=== PATIENT | male | born 1975 | race Two or more races ===

== ENCOUNTER 2017-01-15 02:43 | Emergency (ER) | payer OTHER ==
[~2017-01-15] VITALS: Ht 185.4 cm; Wt 104.3 kg
[2017-01-15] MEDS ORDERED: SODIUM CHLORIDE 0.9% 1,000 ML IV ONE (03:15)
[2017-01-15 03:42] LABS: Basophils # (auto) 0 uL; Basophils % (auto) 0.3 % (0.0-2.0); CONDITION Y; Eosinophils # (auto) 0.1 uL; Eosinophils % (auto) 0.9 % (0.0-7.0); Hematocrit 47.8 % (41.0-53.0); Hemoglobin 15.8 g/dL (13.5-17.5); Lymphocytes # (auto) 1.9 uL; Lymphocytes % (auto) 16.7 % (10.0-50.0); Mean Corpuscular Hemoglobin 28.9 pg (28.0-32.0); Mean Corpuscular Hgb Conc. 33.1 g/dL (32.0-36.0); Mean Corpuscular Volume 87.5 fL (80.0-100.0); Mean Platelet Volume 11.3 fL (7.4-10.4); Monocytes # (auto) 0.5 uL; Monocytes % (auto) 4.8 % (0.0-12.0); Neutrophils # (auto) 8.7 uL; Neutrophils % (auto) 77.3 % (37.0-80.0); Platelet Count (auto) 254 10^3/uL (140-450); Red Cell Distribution Width 12.7 % (11.6-16.0); SUSPECT SEE PRINTOUT; White Blood Cell 11.3 10^3/uL (4.4-10.8)
[2017-01-15 03:45] LABS: INR 0.96 (0.9-1.15); Partial Thromboplastin Time 28.9 sec (22.64-33.71); Prothrombin Time 10.5 sec (9.37-12.3)
[2017-01-15 03:54] LABS: Urine Bilirubin Negative (Negative); Urine Blood Negative /uL (Negative); Urine Color Yellow (Yellow); Urine Glucose Normal (Normal); Urine Ketone Negative (Negative); Urine Mucus FEW (None Seen); Urine Nitrite Negative (Negative); Urine RBC 1 /hpf (0 - 3); Urine pH 5.5 (5.0-8.0)
[2017-01-15 03:56] LABS: Albumin 3.6 g/dL (3.4-5.0); Anion Gap 8 (5-15); Aspartate Aminotransferase 21 U/L (15-37); BUN/Creatinine Ratio 12.1; Blood Urea Nitrogen 11 mg/dL (7-18); Calcium 8.7 mg/dL (8.5-10.1); Carbon Dioxide 24 mmol/L (21-32); Chloride 110 mmol/L (98-107); GFR African American 119 mL/min; GFR Non-African American 99 mL/min; Glucose 104 mg/dL (74-106); Potassium 3.9 mmol/L (3.5-5.1); Salicylate 1.8 mg/dL (2.8-20.0); Sodium 142 mmol/L (136-145)
[2017-01-15 04:01] LABS: Acetaminophen < 2.0 ug/mL (10-30); Alkaline Phosphatase 78 U/L (45-117); Bilirubin, Total 0.5 mg/dL (0.2-1.0); Total Protein 7.8 g/dL (6.4-8.2)
[2017-01-15 04:40] VITALS: BP 138/95
== END 2017-01-15 04:54 ==
LOC: ER 02:43
DX: R41.82 Altered mental status, unspecified (principal); Z02.89 Encounter for other administrative examinations; F15.10 Other stimulant abuse, uncomplicated
CPT/HCPCS: 36415; 51702; 70450; 80053; 80307; 80320; 80329; 81001; 85025; 85610; 85730; 96360; 99285; J7030

== ENCOUNTER 2018-08-11 19:49 | Emergency (ER) | payer MEDICAID, OTHER ==
[~2018-08-11] VITALS: Ht 193 cm; Wt 163.3 kg
[2018-08-11 20:18] VITALS: BP 140/94
[2018-08-12] MEDS ORDERED: cefTRIAXone SOD 1,000 MG VL IM ONE (00:30)
[2018-08-12] MEDS ORDERED: KETOROLAC TROMETH 60MG/2ML VIAL IM ONE (00:30)
[2018-08-12] MEDS ORDERED: AZITHROMYCIN 250 MG TAB PO ONE (00:30)
== END 2018-08-12 00:33 | disposition home or self-care (01) ==
LOC: ER 19:53
DX: A64 Unspecified sexually transmitted disease (principal); M79.10 Myalgia, unspecified site
CPT/HCPCS: 96372; 99283; J0696; J1885

== ENCOUNTER 2018-09-22 15:55 | Emergency (ER) | payer OTHER ==
[~2018-09-22] VITALS: Ht 185.4 cm; Wt 117.9 kg
[2018-09-22 16:40] VITALS: BP 144/84
== END 2018-09-22 17:31 | disposition home or self-care (01) ==
LOC: ER 16:08 → EDBD 16:08 → ER 17:31
DX: S76.011A Strain of muscle, fascia and tendon of right hip, initial encounter (principal); X50.0XXA Overexertion from strenuous movement or load, initial encounter; Y93.89 Activity, other specified; Y99.8 Other external cause status; Y92.89 Other specified places as the place of occurrence of the external cause

== ENCOUNTER 2019-04-01 20:06 | Inpatient (IN) | payer OTHER ==
[~2019-04-01] VITALS: Ht 193 cm; Wt 122.4 kg
[2019-04-01] MEDS ORDERED: HYDROmorphone HCL 2 MG/ML VL IV ONE (21:15)
[2019-04-01] MEDS ORDERED: SODIUM CHLORIDE 0.9% 1,000 ML IV ONE (21:15)
[2019-04-01 22:39] LABS: Basophils # (auto) 0 uL; Basophils % (auto) 0.3 % (0.0-2.0); Eosinophils # (auto) 0 uL; Eosinophils % (auto) 0.2 % (0.0-7.0); Hematocrit 47.4 % (41.0-53.0); Lymphocytes # (auto) 0.7 uL; Lymphocytes % (auto) 6.1 % (10.0-50.0); Mean Corpuscular Hemoglobin 30.1 pg (28.0-32.0); Mean Corpuscular Hgb Conc. 33.6 g/dL (32.0-36.0); Mean Corpuscular Volume 89.3 fL (80.0-100.0); Monocytes # (auto) 0.3 uL; Monocytes % (auto) 3.2 % (0.0-12.0); Neutrophils # (auto) 9.7 uL; Neutrophils % (auto) 90.2 % (37.0-80.0); Platelet Count (auto) 235 10^3/uL (140-450); Red Blood Cells 5.31 10^6/uL (4.5-5.90); Red Cell Distribution Width 14.2 % (11.8-14.3); White Blood Cell 10.8 10^3/uL (4.4-10.8)
[2019-04-01 23:00] LABS: Albumin 3.6 g/dL (3.4-5.0); BUN/Creatinine Ratio 8.7; Calcium 8.9 mg/dL (8.5-10.1); Potassium 4.3 mmol/L (3.5-5.1)
[2019-04-01 23:02] LABS: Bilirubin, Total 0.7 mg/dL (0.2-1.0); Total Protein 7.8 g/dL (6.4-8.2)
[2019-04-02] MEDS ORDERED: MORPHINE SULFATE 4 MG/ML SYR/VIAL IV ONE (01:45)
[2019-04-02] MEDS ORDERED: ONDANSETRON HCL 4 MG/2 ML VIAL IV ONE (01:45)
[2019-04-02] MEDS ORDERED: cloNIDine HCL 0.1 MG TAB PO ONE (01:45)
[2019-04-02] MEDS: hydrALAZINE HCL 20 MG/ML VL IV PRN ×2 (03:06→16:30)
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
[2019-04-02 03:56] VITALS: BP 170/102
[2019-04-02] MEDS: D5W/SOD CHLO 0.9% 1,000 ML IV SCH ×2 (04:38→21:23)
[2019-04-02 05:00] VITALS: BP 170/102
[2019-04-02 08:36] VITALS: BP 163/83
[2019-04-02] MEDS: MORPHINE SULFATE 4 MG/ML SYR/VIAL IV PRN ×2 (09:14→09:59)
[2019-04-02] MEDS: FAMOTIDINE (10MG/ML) 2ML VL IV SCH ×2 (09:53→21:15)
[2019-04-02] MEDS: ONDANSETRON HCL 4 MG/2 ML VIAL IV PRN ×2 (09:53→21:15)
--- NOTE | 2019-04-02 12:27 | NUR ---
DR. MATTHEWS CALLED FOR UPDATE AND GIVES TO TO INSERT NG TUBE TO LIS. ATTEMPTED TO INSERT. PT ONLY TOLERATES TUBE TO BACK OF THE NARE AND THEN REFUSES. HE REACHES IT WITH HIS HANDS AND PULLS IT OUT. ATTEMPTS TO TALK HIM INTO TRYING AGAIN UNSUCESSFUL.
[2019-04-02 12:58] VITALS: BP 172/102
[2019-04-02] MEDS ORDERED: cefTRIAXone 1GM/50ML D5W 50 ML IV ONE (14:00)
[2019-04-02] MEDS: metroNIDAZOLE 500MG/100ML 100 ML IV SCH ×2 (14:00→21:17)
[2019-04-02] MEDS ORDERED: GLYCOPYRROLATE 0.2 MG/ML 1ML VIAL ONE (14:44)
[2019-04-02] MEDS ORDERED: NEOSTIGMINE 1 MG/ML INJ (10mg/10ML VIAL) ONE (14:44)
--- NOTE | 2019-04-02 15:00 | NUR ---
12 LEAD EKG COMPLETED AT BEDSIDE. LAB DRAWS BLOOD. MADE AWARE STAT NEEDED FOR PREOP. TO OR WITH SANITATION OFFICER.
[2019-04-02 15:04] LABS: INR 1.73 (0.9-1.15)
[2019-04-02] MEDS ORDERED: BUPIVACAINE 0.25% INJ 50ML VIAL ONE (15:09)
[2019-04-02] MEDS ORDERED: HYDROmorphone HCL 2 MG/ML VL IV PRN ×2 (15:15)
[2019-04-02] MEDS ORDERED: NALOXONE HCL 0.4 MG/ML VIAL IV PRN (15:15)
[2019-04-02] MEDS ORDERED: ONDANSETRON HCL 4 MG/2 ML VIAL IV PRN (15:15)
[2019-04-02] MEDS ORDERED: SUCCINYLCHOLINE CHLORIDE 20 MG/ML 10ML VIAL IV ONE (15:17)
[2019-04-02] MEDS ORDERED: ETOMIDATE (2MG/ML) 20ML VIAL IV ONE (15:19)
[2019-04-02] MEDS ORDERED: ROCURONIUM 10MG/ML 10ML VIAL IV ONE (15:19)
[2019-04-02] MEDS ORDERED: LIDOCAINE 2% (LOCAL ANESTH.) PF 5ml SDV ONE (15:19)
[2019-04-02] MEDS ORDERED: MIDAZOLAM HCL 1MG/1ML-2 ML VIAL ONE (15:20)
[2019-04-02] MEDS ORDERED: METOCLOPRAMIDE HCL 5MG/ml INJ 2ml VIAL ONE (15:21)
[2019-04-02] MEDS ORDERED: fentaNYL CITRATE 100 MCG/2 ML VL ONE (15:35)
--- NOTE | 2019-04-02 17:30 | NUR ---
RECEIVED PACU REPORT FROM ARMEN VALENCIA.
--- NOTE | 2019-04-02 18:21 | NUR ---
RESTFUL S/P PACU. APPEARS SLEEPING EASY TO AROUSE.
[2019-04-02] MEDS: HYDROmorphone HCL 2 MG/ML VL IV PRN (21:17)
[2019-04-02 22:17] VITALS: BP 132/83
[2019-04-03] MEDS: ONDANSETRON HCL 4 MG/2 ML VIAL IV PRN ×2 (02:44→14:01)
[2019-04-03] MEDS: HYDROmorphone HCL 2 MG/ML VL IV PRN ×3 (02:44→19:49)
[2019-04-03] MEDS: D5W/SOD CHLO 0.9% 1,000 ML IV SCH ×2 (05:13→14:09)
[2019-04-03] MEDS: metroNIDAZOLE 500MG/100ML 100 ML IV SCH ×3 (05:13→21:14)
[2019-04-03 05:28] VITALS: BP 120/74
[2019-04-03 05:35] LABS: Basophils # (auto) 0 uL; Basophils % (auto) 0.2 % (0.0-2.0); Eosinophils # (auto) 0.1 uL; Eosinophils % (auto) 0.5 % (0.0-7.0); Hematocrit 44.6 % (41.0-53.0); Hemoglobin 15.1 g/dL (13.5-17.5); Lymphocytes # (auto) 1.2 uL; Mean Corpuscular Hemoglobin 29.9 pg (28.0-32.0); Mean Corpuscular Hgb Conc. 33.8 g/dL (32.0-36.0); Mean Corpuscular Volume 88.3 fL (80.0-100.0); Monocytes # (auto) 0.9 uL; Monocytes % (auto) 8.2 % (0.0-12.0); Neutrophils # (auto) 9.4 uL; Neutrophils % (auto) 81.1 % (37.0-80.0); Nucleated Red Blood Cells % 0.1 %; Platelet Count (auto) 231 10^3/uL (140-450); Red Blood Cells 5.05 10^6/uL (4.5-5.90); Red Cell Distribution Width 13.6 % (11.8-14.3); White Blood Cell 11.6 10^3/uL (4.4-10.8)
[2019-04-03 06:01] LABS: BUN/Creatinine Ratio 9.3; Potassium 3.6 mmol/L (3.5-5.1)
--- NOTE | 2019-04-03 07:30 | NUR ---
Opening Shift Note Assumed care of patient, awake and alert. No S/S of distress/SOB or pain. Instructed on POC and to call for assist PRN, will continue to monitor for changes Q1hr and PRN.
[2019-04-03 09:10] VITALS: BP 134/82
[2019-04-03] MEDS: FAMOTIDINE (10MG/ML) 2ML VL IV SCH ×2 (10:16→21:14)
[2019-04-03] MEDS: cefTRIAXone 1GM/50ML D5W 50 ML IV SCH (10:16)
--- NOTE | 2019-04-03 12:00 | NUR ---
Rounds Patient ASLEEP. No S/S of distress/SOB or pain. Will continue to monitor changes q1hr and PRN.
[2019-04-03 12:33] VITALS: BP 151/91
--- NOTE | 2019-04-03 14:00 | NUR ---
PT'S MOTHER AT BEDSIDE/ Patient awake and alert. No S/S of distress/SOB or pain. Will continue to monitor changes q1hr and PRN.
--- NOTE | 2019-04-03 16:00 | NUR ---
PT ENCOURAGED TO AMBULATE FREQUENTLY AND TO USE THE INCENTIVE SPIROMETER PROVIDED TO THE PATIENT. PT DEMONSTRATED PROPER USE OF THE DEVICE. EXPLAINED TO PT THE ADVANTAGES OF AMBULATING AND ALSO THE COMPLICATIONS THAT CAN ARISE AFTER SURGERY DUE TO IMMOBILIZATION. PT VERBALIZED UNDERSTANDING AND THAT HE WILL TRY TO WALK SOON.
[2019-04-03 16:39] VITALS: BP 143/88
--- NOTE | 2019-04-03 18:49 | NUR ---
CLOSING NOTES PT IN BED, WATCHING TV. No S/S of distress/SOB or pain.
--- NOTE | 2019-04-03 19:50 | NUR ---
Opening Shift Note Assumed care of patient, awake and alert. No S/S of distress/SOB. Patient complain of abdominal pain 01/08, will administer prn pain medication. Instructed on POC and to call for assist PRN, will continue to monitor for changes Q1hr and PRN.
[2019-04-03 20:00] VITALS: BP 142/98
--- NOTE | 2019-04-03 20:00 | NUR ---
IV removal LAC IV DC'd with clean sterile technique, catheter fully intact. Pressure dressing applied to site. Patient tolerated well. NOTE:
--- NOTE | 2019-04-03 20:05 | NUR ---
IV insertion IV access obtained, via clean sterile technique by inserting 22 gauge catheter at after 2 attempts. IV secured properly. No trauma to site. Patient tolerated well.
[2019-04-03 22:00] VITALS: BP 142/98
[2019-04-04] MEDS: HYDROmorphone HCL 2 MG/ML VL IV PRN ×6 (00:11→22:57)
--- NOTE | 2019-04-04 00:51 | NUR ---
Patient rounds. Patient sleeping
--- NOTE | 2019-04-04 04:24 | NUR ---
Patient complain of pain. PRN medication administer.
[2019-04-04 05:35] VITALS: BP 159/91
[2019-04-04] MEDS: hydrALAZINE HCL 20 MG/ML VL IV PRN ×2 (05:36→17:28)
[2019-04-04] MEDS: metroNIDAZOLE 500MG/100ML 100 ML IV SCH ×3 (05:36→22:17)
[2019-04-04 05:41] LABS: Basophils # (auto) 0 uL; Basophils % (auto) 0.3 % (0.0-2.0); Eosinophils # (auto) 0.1 uL; Eosinophils % (auto) 0.6 % (0.0-7.0); Hematocrit 47.9 % (41.0-53.0); Hemoglobin 15.9 g/dL (13.5-17.5); Lymphocytes # (auto) 0.5 uL; Lymphocytes % (auto) 5.2 % (10.0-50.0); Mean Corpuscular Hemoglobin 29.6 pg (28.0-32.0); Mean Corpuscular Hgb Conc. 33.1 g/dL (32.0-36.0); Mean Corpuscular Volume 89.4 fL (80.0-100.0); Monocytes # (auto) 0.8 uL; Monocytes % (auto) 7.7 % (0.0-12.0); Neutrophils # (auto) 8.8 uL; Neutrophils % (auto) 86.2 % (37.0-80.0); Nucleated Red Blood Cells % 0.1 %; Platelet Count (auto) 239 10^3/uL (140-450); Red Blood Cells 5.36 10^6/uL (4.5-5.90); Red Cell Distribution Width 13.5 % (11.8-14.3); White Blood Cell 10.2 10^3/uL (4.4-10.8)
[2019-04-04 05:59] LABS: BUN/Creatinine Ratio 11.1; Calcium 8.4 mg/dL (8.5-10.1); Potassium 3.7 mmol/L (3.5-5.1)
--- NOTE | 2019-04-04 07:28 | NUR ---
Opening Shift Note Assumed care of patient, PT is currently resting in bed with even and non-labored respirations. No S/S of distress. Call light within reach, bed in lowest position and locked. will continue to monitor for changes Q1hr and PRN.
[2019-04-04 08:48] VITALS: BP 152/95
[2019-04-04] MEDS: FAMOTIDINE (10MG/ML) 2ML VL IV SCH ×2 (08:50→22:17)
[2019-04-04] MEDS: cefTRIAXone 1GM/50ML D5W 50 ML IV SCH (08:50)
[2019-04-04] MEDS: ONDANSETRON HCL 4 MG/2 ML VIAL IV PRN ×3 (08:50→17:28)
[2019-04-04] MEDS: D5W/SOD CHLO 0.9% 1,000 ML IV SCH ×2 (08:52→21:40)
--- NOTE | 2019-04-04 09:15 | NUR ---
PT SURGICAL INCISION OPEN TO AIR. WOUND IS WELL APPROXIMATED WITH JYOTHI INTACT. SURGICAL INCISION IS CLEAN DRY AND INTACT WITH NO DRAINAGE. SURROUNDING TISSUE IS PINK. SKIN IS COOL TO TOUCH AND ELASTIC. PT EDUCATED ABOUT HYGIENE AND INFECTION CONTROL. WILL APPLY NEW DRESSING TO SURGICAL SITE.
--- NOTE | 2019-04-04 10:32 | NUR ---
MD IGGY ANDERSON AT BEDSIDE. ALL QUESTIONS AND CONCERNS ADDRESSED AT THIS TIME. PT UPDATED ON POC
[2019-04-04] MEDS ORDERED: amLODIPine BESYLATE 5 MG TAB PO ONE (10:45)
[2019-04-04 12:44] VITALS: BP 157/98
--- NOTE | 2019-04-04 12:52 | NUR ---
PT SIGNED SMOKING AMA PT WOULD LIKE TO GO DOWNSTAIRS FOR A WALK. PT SIGNED AMA FORM AND IT IS LOCATED IN THE FRONT OF THE CHART
--- NOTE | 2019-04-04 13:24 | NUR ---
FAMILY AT BEDSIDE STATES "HE NORMALLY TAKES ZOLOFT OR SOMETHING LIKE THAT FOR BIPOLAR DEPRESSION AND ANXIETY. HE HE SUICIDAL RIGHT NOW" WHEN PT WAS ASKED ABOUT THE SUICIDAL THOUGHTS HE STATED "I JUST WANT IT TO END MAN, I I AM JUST INPAIN AND I HAVE SO MUCH ANXIETY." PT CURRENTLY COMPLAINING OF 9/10 PAIN IN HIS ABDOMEN. PAGED MD ANDERSON REGARDING THE MEDICATIONS AND THE SUICIDAL IDEATION STATEMENT FROM FAMILY
--- NOTE | 2019-04-04 13:50 | NUR ---
VALERI ANDERSON RE: ZOLOFT MEDICATION AND ANXIETY AND FAMILY CONCERNS FOR SUICIDE.
--- NOTE | 2019-04-04 14:01 | NUR ---
SPOKE TO PT ABOUT SUICIDAL IDEATION WITHOUT FAMILY MEMBER AT BEDSIDE. PT STATES "NO I DO NOT HAVE ANY THOUGHTS OF SUICIDE"
--- NOTE | 2019-04-04 14:20 | NUR ---
[employer] PERSONNEL DEYA CALLED RE: TELEPSYCH CONSULT. THE COMPUTER IS NOW IN THE ROOM AND BEING SET UP AT THIS TIME.
--- NOTE | 2019-04-04 15:44 | NUR ---
Social Service consult regarding Advance Directives. Provided pt with information on Advance Directives and Durable Power of Package Clerk form. Pt verbalized understanding and accepted the information. Will contact Merchandiser [employer] for any further concerns or issues.
--- NOTE | 2019-04-04 15:45 | NUR ---
TELEPSYCH CONSULT COMPLETED. REPORT FAXED OVER AND PUT INTO THE CHART
[2019-04-04 17:05] VITALS: BP 158/87
--- NOTE | 2019-04-04 19:35 | NUR ---
Opening Shift Note Report received from day shift RN. Assumed care of patient. Patient resting in bed and A&O x4. No S/S of distress/SOB noted. Patient complains of abdominal pain 5/10 on a numerical scale. Will medicate patient as ordered. No complaints of nausea. Abdominal incision open to air and well approximated. No drainage or redness noted at the incisional site. Instructed on POC and to call for assist PRN, will continue to monitor for changes Q1hr and PRN.
[2019-04-04 21:30] VITALS: BP 143/84
[2019-04-05 05:00] VITALS: BP 157/88
[2019-04-05] MEDS: HYDROmorphone HCL 2 MG/ML VL IV PRN ×2 (05:16→09:30)
[2019-04-05] MEDS: metroNIDAZOLE 500MG/100ML 100 ML IV SCH (05:16)
[2019-04-05 05:25] LABS: Basophils # (auto) 0 uL; Basophils % (auto) 0.3 % (0.0-2.0); Eosinophils # (auto) 0.2 uL; Eosinophils % (auto) 3.6 % (0.0-7.0); Hematocrit 47.3 % (41.0-53.0); Hemoglobin 15.7 g/dL (13.5-17.5); Lymphocytes # (auto) 0.5 uL; Lymphocytes % (auto) 8.2 % (10.0-50.0); Mean Corpuscular Hemoglobin 29.5 pg (28.0-32.0); Mean Corpuscular Hgb Conc. 33.1 g/dL (32.0-36.0); Mean Corpuscular Volume 89.2 fL (80.0-100.0); Monocytes # (auto) 0.8 uL; Neutrophils # (auto) 4.9 uL; Neutrophils % (auto) 74.9 % (37.0-80.0); Nucleated Red Blood Cells % 0.1 %; Platelet Count (auto) 251 10^3/uL (140-450); Red Blood Cells 5.31 10^6/uL (4.5-5.90); Red Cell Distribution Width 13.4 % (11.8-14.3); White Blood Cell 6.5 10^3/uL (4.4-10.8)
[2019-04-05 05:49] LABS: Calcium 8.3 mg/dL (8.5-10.1); Potassium 3.4 mmol/L (3.5-5.1)
[2019-04-05 05:51] LABS: BUN/Creatinine Ratio 11.8
[2019-04-05 06:17] VITALS: BP 148/79
[2019-04-05] MEDS: cefTRIAXone 1GM/50ML D5W 50 ML IV SCH (08:36)
[2019-04-05 08:42] VITALS: BP 137/71
[2019-04-05] MEDS: amLODIPine BESYLATE 5 MG TAB PO SCH (09:30)
[2019-04-05] MEDS: FAMOTIDINE (10MG/ML) 2ML VL IV SCH ×2 (09:30→22:27)
[2019-04-05] MEDS: D5W/SOD CHLO 0.9% 1,000 ML IV SCH (10:58)
[2019-04-05 12:30] VITALS: BP 136/92
[2019-04-05] MEDS ORDERED: POTASSIUM CHL 20 Meq TABLET PO ONE (13:15)
[2019-04-05] MEDS ORDERED: HYDROcodone-ACET 5/325MG TAB PO PRN (13:15)
[2019-04-05] MEDS ORDERED: KETOROLAC TROMETH 30 MG/ML 1ML VIAL IV PRN (13:15)
--- NOTE | 2019-04-05 14:07 | NUR ---
NUTRITION ASSESSMENT NOTES Please refer to link notes of nutrition screen form filed under the intervention section of the plan of care for further details. Est. Needs: 2400 kcal to 3000 kcal (20-25 kcal/kgBW), 91 gms to 120 gms pro (0.8-1.0 gms/kgBW). Will continue to monitor pertinent labs and reassess nutrient need prn Thank you. Addendum: 04/05/19 at [address] Amended: Links added.
[2019-04-05] MEDS ORDERED: SERTRALINE HCL 50 MG TAB PO ONE (14:15)
--- NOTE | 2019-04-05 15:49 | NUR ---
PT OUT OF BED, WALKING IN HALLWAYS AND OFF FLOOR WITH FAMILY. HAS AMA SIGNED TO SMOKE. REMINDED PT TO BE CAREFUL WHEN HE IS OUTSIDE ALONE. PT VERBALIZED UNDERSTANDING.
[2019-04-05 16:22] VITALS: BP 143/83
[2019-04-05] MEDS: ONDANSETRON HCL 4 MG/2 ML VIAL IV PRN (17:36)
--- NOTE | 2019-04-05 19:20 | NUR ---
Opening Shift Note Report received from day shift RN. Assumed care of patient. Patient resting in bed and A&O x4. No S/S of distress/SOB noted. Patient complains of abdominal pain 8/10 on a numerical scale. Will medicate patient as ordered. Patient denies any nausea. Abdominal incision open to air and well approximated. No drainage or redness noted at the incisional site. Instructed on POC and to call for assist PRN, will continue to monitor for changes Q1hr and PRN.
[2019-04-05 21:28] VITALS: BP 135/73
[2019-04-05] MEDS ORDERED: traZODone HCL 50 MG TAB PO SCH (22:00)
[2019-04-05] MEDS: clonazePAM 0.5 MG TAB PO SCH (22:21)
[2019-04-06 04:57] VITALS: BP 138/82
[2019-04-06 08:20] VITALS: BP 140/81
[2019-04-06] MEDS: FAMOTIDINE (10MG/ML) 2ML VL IV SCH (09:21)
[2019-04-06] MEDS: clonazePAM 0.5 MG TAB PO SCH (09:23)
[2019-04-06] MEDS: amLODIPine BESYLATE 5 MG TAB PO SCH (09:25)
[2019-04-06] MEDS ORDERED: SERT50TA PO (09:43)
[2019-04-06] MEDS ORDERED: TRAZ50TA2 PO (09:43)
[2019-04-06] MEDS ORDERED: AML5T PO (09:43)
[2019-04-06] MEDS ORDERED: DOCU-94 PO (09:46)
[2019-04-06] MEDS ORDERED: SERTRALINE HCL 50 MG TAB PO SCH (10:00)
[2019-04-06 10:07] VITALS: BP 140/81
[2019-04-06 12:51] VITALS: BP 143/77
--- NOTE | 2019-04-06 15:13 | NUR ---
PT DISCHARGED HOME WITH FAMILY. ALL APPROPRIATE PAPERWORK SIGNED, RX GIVEN TO PT, VERBALIZED UNDERSTANDING. IV REMOVED.
== END 2019-04-06 15:00 | disposition home or self-care (01) | DRG 227 ==
LOC: ER 20:10 → OVERFLOW 20:11 → WEST WING 04-02 03:55
PROVIDERS: ADMIT Nurse Practitioner; ATTEND Internal Medicine
PROC: 0WQF0ZZ Repair Abdominal Wall, Open Approach (ICD-10-PCS; principal; 2019-04-02 15:15)
DX: K42.0 Umbilical hernia with obstruction, without gangrene (principal); E87.1 Hypo-osmolality and hyponatremia; E66.9 Obesity, unspecified; I10 Essential (primary) hypertension; F41.9 Anxiety disorder, unspecified; F32.9 Major depressive disorder, single episode, unspecified; I16.0 Hypertensive urgency; Z83.3 Family history of diabetes mellitus; Z81.8 Family history of other mental and behavioral disorders; Z79.899 Other long term (current) drug therapy; Z68.32 Body mass index [BMI] 32.0-32.9, adult
CPT/HCPCS: 36415; 71045; 74176; 80048; 80053; 83690; 85025; 85610; 87040; 87086; 88302; 93005; 96361; 96374; 96375; G0378; J0330; J0696; J1885; J2001; J2250; J2405; J3490; J7042

== ENCOUNTER 2020-01-30 22:03 | Inpatient (IN) | payer OTHER ==
[~2020-01-30] VITALS: Ht 188 cm; Wt 127.0 kg
[~2020-01-30 22:03] MED LIST: AML5T PO; DOCU-94 PO; SERT50TA PO; TRAZ50TA2 PO
[2020-01-30 23:09] LABS: Basophils # (auto) 0 10 ^3/uL (0-0.2); Basophils % (auto) 0.2 % (0.0-2.0); Eosinophils # (auto) 0 10 ^3/uL (0-0.8); Eosinophils % (auto) 0.1 % (0.0-7.0); Hemoglobin 14.9 g/dL (13.5-17.5); Lymphocytes # (auto) 0.8 10 ^3/uL (0.4-5.4); Lymphocytes % (auto) 5.6 % (10.0-50.0); Mean Corpuscular Hemoglobin 28.8 pg (28.0-32.0); Mean Corpuscular Hgb Conc. 33.1 g/dL (32.0-36.0); Monocytes % (auto) 7.4 % (0.0-12.0); Neutrophils # (auto) 11.8 10 ^3/uL (1.6-8.6); Neutrophils % (auto) 86.7 % (37.0-80.0); Platelet Count (auto) 209 10^3/uL (140-450); Red Blood Cells 5.18 10^6/uL (4.5-5.90); Red Cell Distribution Width 12.2 % (11.8-14.3); White Blood Cell 13.6 10^3/uL (4.4-10.8)
[2020-01-30 23:27] LABS: Alanine Aminotransferase 75 U/L (16-61); Albumin 4.1 g/dL (3.4-5.0); Amylase 39 U/L (25-115); Anion Gap 10 (5-15); Aspartate Aminotransferase 181 U/L (15-37); BUN/Creatinine Ratio 16.8; Blood Urea Nitrogen 29 mg/dL (7-18); Calcium 8.8 mg/dL (8.5-10.1); Carbon Dioxide 22 mmol/L (21-32); Chloride 100 mmol/L (98-107); GFR African American 56 mL/min; GFR Non-African American 46 mL/min; Glucose 85 mg/dL (74-106); Lipase 88 U/L (73-393); Potassium 3.3 mmol/L (3.5-5.1); Sodium 132 mmol/L (136-145)
[2020-01-30] MEDS ORDERED: ONDANSETRON HCL 4 MG/2 ML VIAL IV ONE (23:30)
[2020-01-30] MEDS ORDERED: SODIUM CHLORIDE 0.9% 1,000 ML IV ONE (23:30)
[2020-01-30] MEDS ORDERED: MORPHINE SULFATE 4 MG/ML SYR/VIAL IV ONE (23:30)
[2020-01-30 23:32] LABS: Alkaline Phosphatase 67 U/L (45-117); Bilirubin, Total 1.9 mg/dL (0.2-1.0); Total Protein 8.1 g/dL (6.4-8.2)
[2020-01-30 23:53] LABS: Alcohol, Urine < 3.0 mg/dL (0-10); Amphetamine Screen, Urine POSITIVE (NEGATIVE); Barbiturate Scree,Urine NEGATIVE (NEGATIVE); Benzodiazephine Screen, Urine NEGATIVE (NEGATIVE); Cannabinoid Screen, Urine POSITIVE (NEGATIVE); Cocaine Screen, Urine NEGATIVE (NEGATIVE); Opiate Scree,Urine NEGATIVE (NEGATIVE); Phencyclidine Screen, Urine NEGATIVE (NEGATIVE)
[2020-01-30 23:58] LABS: Urine Bacteria FEW /hpf (None Seen); Urine Blood 3+ /uL (Negative); Urine Hyaline Cast MANY /lpf (0 - 2); Urine Mucus FEW (None Seen); Urine WBC 2 /hpf (0 - 3)
[2020-01-31] MEDS ORDERED: LORazepam 2MG/ML-1ML VIAL IV ONE (01:00)
[2020-01-31] MEDS ORDERED: NITROGLYCERIN 0.4 MG SL TAB SL PRN (06:00)
[2020-01-31] MEDS ORDERED: MORPHINE SULF INJ 2 MG/ML SYRINGE 1ML IV PRN (06:00)
[2020-01-31] MEDS ORDERED: ONDANSETRON HCL 4 MG/2 ML VIAL IV PRN (06:00)
[2020-01-31] MEDS ORDERED: ACETAMINOPHEN 325 MG TAB PO PRN (06:00)
[2020-01-31] MEDS: SODIUM CHLORIDE 0.9% 1,000 ML IV SCH ×2 (06:20→10:19)
[2020-01-31] MEDS ORDERED: ASPirin 81 mg TAB PO SCH (10:00)
[2020-01-31] MEDS ORDERED: PANTOPRAZOLE 40 MG/10 ML VIAL INJ IV SCH (10:00)
[2020-01-31 10:26] VITALS: BP 111/72
[2020-01-31 12:02] LABS: BUN/Creatinine Ratio 21.4; Calcium 8.4 mg/dL (8.5-10.1); Potassium 3.5 mmol/L (3.5-5.1)
[2020-01-31] MEDS ORDERED: ATORVASTATIN 20 MG TAB PO SCH (22:00)
== END 2020-01-31 11:04 | disposition left against medical advice (07) | DRG 251 ==
LOC: EDBD 22:03 → ER 22:23 → TELE 22:24
PROVIDERS: ADMIT Nurse Practitioner; ATTEND Internal Medicine Nephrology
DX: R10.9 Unspecified abdominal pain (principal); N17.9 Acute kidney failure, unspecified; E66.01 Morbid (severe) obesity due to excess calories; F15.20 Other stimulant dependence, uncomplicated; R94.31 Abnormal electrocardiogram [ECG] [EKG]; I10 Essential (primary) hypertension; F41.9 Anxiety disorder, unspecified; Z53.29 Procedure and treatment not carried out because of patient's decision for other reasons; F32.9 Major depressive disorder, single episode, unspecified; Z83.3 Family history of diabetes mellitus; Z81.8 Family history of other mental and behavioral disorders; Z68.35 Body mass index [BMI] 35.0-35.9, adult
CPT/HCPCS: 36415; 74176; 80048; 80053; 80307; 81001; 82150; 83690; 84484; 85025; 93005; C9113; G0378; J2405

== ENCOUNTER 2020-09-02 01:03 | Emergency (ER) | payer OTHER ==
[~2020-09-02] VITALS: Ht 193 cm; Wt 127.0 kg
[2020-09-02 04:00] VITALS: BP 135/89
[2020-09-02] MEDS ORDERED: KETOROLAC TROMETH 60MG/2ML VIAL IM ONE (04:30)
== END 2020-09-02 04:57 | disposition home or self-care (01) ==
LOC: ER 01:03
DX: N20.0 Calculus of kidney (principal); K40.90 Unilateral inguinal hernia, without obstruction or gangrene, not specified as recurrent; F15.10 Other stimulant abuse, uncomplicated; I10 Essential (primary) hypertension
CPT/HCPCS: 74176; 96372; 99284; J1885

== ENCOUNTER 2021-07-23 16:52 | Emergency (ER) | payer OTHER ==
[~2021-07-23] VITALS: Ht 193 cm; Wt 127.0 kg
[2021-07-23 16:53] VITALS: BP 159/99
== END 2021-07-23 20:15 | disposition home or self-care (01) ==
LOC: ER 16:52
DX: K45.8 Other specified abdominal hernia without obstruction or gangrene (principal); I10 Essential (primary) hypertension; Z79.899 Other long term (current) drug therapy

== ENCOUNTER 2021-08-05 14:50 | Inpatient (IN) | payer OTHER ==
[~2021-08-05] VITALS: Ht 193 cm; Wt 132.0 kg
[2021-08-05] MEDS ORDERED: ONDANSETRON HCL 4 MG/2 ML VIAL IV ONE ×2 (15:15→19:00)
[2021-08-05] MEDS ORDERED: MORPHINE SULFATE 4 MG/ML SYR/VIAL IV ONE ×2 (15:15→19:00)
[2021-08-05] MEDS ORDERED: IOHEXOL 300 MG/ML 100ML BOTTLE IJ ONE (16:27)
[2021-08-05 16:34] LABS: Basophils # (auto) 0.1 10 ^3/uL (0-0.2); Basophils % (auto) 0.8 % (0.0-2.0); Eosinophils # (auto) 0.1 10 ^3/uL (0-0.8); Lymphocytes # (auto) 1.1 10 ^3/uL (0.4-5.4); Lymphocytes % (auto) 8.3 % (10.0-50.0); Mean Corpuscular Hgb Conc. 32.6 g/dL (32.0-36.0); Mean Corpuscular Volume 88.9 fL (80.0-100.0); Monocytes # (auto) 0.6 10 ^3/uL (0-1.3); Monocytes % (auto) 4.2 % (0.0-12.0); Neutrophils # (auto) 11.9 10 ^3/uL (1.6-8.6); Neutrophils % (auto) 85.7 % (37.0-80.0); Red Blood Cells 5.51 10^6/uL (4.5-5.90); Red Cell Distribution Width 13.6 % (11.8-14.3); White Blood Cell 13.8 10^3/uL (4.4-10.8)
[2021-08-05 16:35] LABS: Albumin 3.7 g/dL (3.4-5.0); Calcium 8.9 mg/dL (8.5-10.1); Potassium 4.4 mmol/L (3.5-5.1)
[2021-08-05 16:38] LABS: BUN/Creatinine Ratio 12.6; Bilirubin, Total 0.3 mg/dL (0.2-1.0); Total Protein 7.8 g/dL (6.4-8.2)
[2021-08-05 16:41] LABS: INR 0.99 (0.9-1.15); Partial Thromboplastin Time 27.8 sec (23.6-33.0)
[2021-08-05 18:54] LABS: Urine Bacteria NONE SEEN /hpf (None Seen); Urine Blood Negative /uL (Negative); Urine WBC <1 /hpf (0 - 3)
[2021-08-05 19:00] LABS: Urine Specific Gravity > 1.050 (1.001-1.035)
[2021-08-05] MEDS: D5W/SOD CHLO 0.9% 1,000 ML IV SCH (19:51)
[2021-08-05 21:58] VITALS: BP 167/108
[2021-08-05 22:00] VITALS: BP 167/108
[2021-08-05] MEDS: MORPHINE SULFATE INJECTION 2 MG/ML SYRG IV PRN (22:28)
[2021-08-06] MEDS: ONDANSETRON HCL 4 MG/2 ML VIAL IV PRN ×3 (00:35→23:36)
[2021-08-06 01:30] VITALS: BP 151/105
[2021-08-06] MEDS: MORPHINE SULFATE INJECTION 2 MG/ML SYRG IV PRN ×3 (02:22→23:37)
[2021-08-06] MEDS ORDERED: hydrALAZINE HCL 20 MG/ML VL IV PRN (03:30)
[2021-08-06 05:53] LABS: Basophils # (auto) 0 10 ^3/uL (0-0.2); Basophils % (auto) 0.1 % (0.0-2.0); Eosinophils # (auto) 0.1 10 ^3/uL (0-0.8); Eosinophils % (auto) 0.4 % (0.0-7.0); Lymphocytes # (auto) 1.5 10 ^3/uL (0.4-5.4); Lymphocytes % (auto) 9.6 % (10.0-50.0); Mean Corpuscular Hemoglobin 29.2 pg (28.0-32.0); Mean Corpuscular Hgb Conc. 33.3 g/dL (32.0-36.0); Mean Corpuscular Volume 87.8 fL (80.0-100.0); Monocytes % (auto) 6.4 % (0.0-12.0); Neutrophils # (auto) 12.9 10 ^3/uL (1.6-8.6); Neutrophils % (auto) 83.5 % (37.0-80.0); Nucleated Red Blood Cells % 0.1 %; Red Blood Cells 5.12 10^6/uL (4.5-5.90); Red Cell Distribution Width 13.7 % (11.8-14.3); White Blood Cell 15.5 10^3/uL (4.4-10.8)
[2021-08-06 06:12] LABS: Albumin 3.2 g/dL (3.4-5.0); Calcium 8.1 mg/dL (8.5-10.1); Potassium 3.8 mmol/L (3.5-5.1)
[2021-08-06 06:15] LABS: BUN/Creatinine Ratio 9.6; Bilirubin, Total 0.7 mg/dL (0.2-1.0); Total Protein 7.1 g/dL (6.4-8.2)
[2021-08-06] MEDS: D5W/SOD CHLO 0.9% 1,000 ML IV SCH ×2 (06:22→17:29)
[2021-08-06 06:40] VITALS: BP 144/89
[2021-08-06] MEDS: PANTOPRAZOLE 40 MG/10 ML VIAL INJ IV SCH (08:02)
[2021-08-06] MEDS ORDERED: HYDROmorphone HCL 2 MG/ML VL IV ONE ×2 (08:45→19:30)
[2021-08-06 09:00] VITALS: BP 175/113
[2021-08-06] MEDS ORDERED: BUPIVACAINE W/ EPINEPH 0.25% INJ 50ML MDV ONE (11:37)
[2021-08-06] MEDS ORDERED: MIDAZOLAM HCL 2MG/2ML 2ml VIAL (1mg/ml) ONE (11:54)
[2021-08-06] MEDS ORDERED: fentaNYL CITRATE 100 MCG/2 ML VL ONE (11:54)
[2021-08-06] MEDS ORDERED: ceFAZolin 1GM/50ML 100 ML IV ONE (12:05)
[2021-08-06] MEDS ORDERED: ceFAZolin 1GM/50ML 50 ML IV ONE (12:46)
[2021-08-06] MEDS ORDERED: PROPOFOL 10 MG/ML 20 ML IV ONE ×2 (12:48→14:39)
[2021-08-06] MEDS ORDERED: LIDOCAINE HCL 100 MG/5ML (2%) SYRG INJ IV ONE (12:48)
[2021-08-06] MEDS ORDERED: ROCURONIUM 10MG/ML 10ML VIAL IV ONE (13:24)
[2021-08-06] MEDS ORDERED: ceFAZolin 1GM VL ONE (14:17)
[2021-08-06] MEDS ORDERED: HYDROmorphone HCL 2 MG/ML VL ONE (14:22)
[2021-08-06] MEDS ORDERED: NEOSTIGMINE 1 MG/ML INJ (10mg/10ML VIAL) ONE (14:34)
[2021-08-06] MEDS ORDERED: ONDANSETRON HCL 4 MG/2 ML VIAL ONE (14:34)
[2021-08-06] MEDS ORDERED: DexAMETHasone SOD PHOS 10MG/1ML VIAL INJ ONE (14:34)
[2021-08-06] MEDS ORDERED: METOCLOPRAMIDE HCL 5MG/ml INJ 2ml VIAL IV PRN (15:15)
[2021-08-06] MEDS ORDERED: ONDANSETRON HCL 4 MG/2 ML VIAL IV PRN (15:15)
[2021-08-06] MEDS ORDERED: HYDROmorphone HCL 2 MG/ML VL IV PRN ×2 (15:15)
[2021-08-06 16:22] VITALS: BP 92/54
[2021-08-06 17:00] VITALS: BP 92/54
[2021-08-06] MEDS ORDERED: hydrOXYzine 25 MG TAB or CAP PO PRN (17:00)
[2021-08-06 22:00] VITALS: BP 130/81
[2021-08-07] MEDS: MORPHINE SULFATE INJECTION 2 MG/ML SYRG IV PRN ×2 (04:37→09:09)
[2021-08-07] MEDS: D5W/SOD CHLO 0.9% 1,000 ML IV SCH (04:50)
[2021-08-07 05:00] VITALS: BP 147/80
[2021-08-07 06:56] LABS: Basophils # (auto) 0 10 ^3/uL (0-0.2); Basophils % (auto) 0.2 % (0.0-2.0); Eosinophils # (auto) 0.1 10 ^3/uL (0-0.8); Eosinophils % (auto) 0.6 % (0.0-7.0); Hematocrit 42.3 % (41.0-53.0); Hemoglobin 14.5 g/dL (13.5-17.5); Lymphocytes # (auto) 1.1 10 ^3/uL (0.4-5.4); Lymphocytes % (auto) 7.9 % (10.0-50.0); Mean Corpuscular Hemoglobin 29.9 pg (28.0-32.0); Mean Corpuscular Hgb Conc. 34.2 g/dL (32.0-36.0); Mean Corpuscular Volume 87.5 fL (80.0-100.0); Monocytes # (auto) 1.2 10 ^3/uL (0-1.3); Monocytes % (auto) 8.5 % (0.0-12.0); Neutrophils # (auto) 11.4 10 ^3/uL (1.6-8.6); Neutrophils % (auto) 82.8 % (37.0-80.0); Red Blood Cells 4.84 10^6/uL (4.5-5.90); Red Cell Distribution Width 13.8 % (11.8-14.3); White Blood Cell 13.8 10^3/uL (4.4-10.8)
[2021-08-07 07:11] LABS: BUN/Creatinine Ratio 10.1; Calcium 8.5 mg/dL (8.5-10.1); Magnesium 1.8 mg/dL (1.6-2.6); Phosphorus 2.3 mg/dL (2.5-4.90); Potassium 3.8 mmol/L (3.5-5.1)
[2021-08-07 09:00] VITALS: BP 152/84
[2021-08-07] MEDS ORDERED: SODIUM PHOSPHATES 20 MEQ in SODIUM CHL 0.9% 100 ML IV ONE (09:00)
[2021-08-07] MEDS: PANTOPRAZOLE 40 MG/10 ML VIAL INJ IV SCH (09:08)
[2021-08-07 13:00] VITALS: BP 144/79
[2021-08-07] MEDS ORDERED: HYDROmorphone HCL 2 MG/ML VL IV ONE (13:00)
[2021-08-07] MEDS: ONDANSETRON HCL 4 MG/2 ML VIAL IV PRN ×2 (13:49→20:17)
[2021-08-07 17:00] VITALS: BP 138/88
[2021-08-07] MEDS: HYDROmorphone HCL 2 MG/ML VL IV PRN (20:18)
[2021-08-07 22:00] VITALS: BP 148/86
[2021-08-08] MEDS: HYDROmorphone HCL 2 MG/ML VL IV PRN ×4 (02:16→22:49)
[2021-08-08] MEDS: ONDANSETRON HCL 4 MG/2 ML VIAL IV PRN (02:16)
[2021-08-08 05:00] VITALS: BP 147/78
[2021-08-08 07:17] LABS: Basophils # (auto) 0 10 ^3/uL (0-0.2); Basophils % (auto) 0.3 % (0.0-2.0); Eosinophils # (auto) 0.2 10 ^3/uL (0-0.8); Eosinophils % (auto) 2.1 % (0.0-7.0); Hematocrit 42.1 % (41.0-53.0); Hemoglobin 14.1 g/dL (13.5-17.5); Lymphocytes # (auto) 1.3 10 ^3/uL (0.4-5.4); Lymphocytes % (auto) 10.9 % (10.0-50.0); Mean Corpuscular Hemoglobin 29.5 pg (28.0-32.0); Mean Corpuscular Hgb Conc. 33.5 g/dL (32.0-36.0); Mean Corpuscular Volume 88.1 fL (80.0-100.0); Monocytes # (auto) 1.4 10 ^3/uL (0-1.3); Monocytes % (auto) 11.3 % (0.0-12.0); Neutrophils # (auto) 9.1 10 ^3/uL (1.6-8.6); Neutrophils % (auto) 75.4 % (37.0-80.0); Nucleated Red Blood Cells % 0.1 %; Red Blood Cells 4.78 10^6/uL (4.5-5.90); Red Cell Distribution Width 13.2 % (11.8-14.3)
[2021-08-08 07:26] LABS: BUN/Creatinine Ratio 7.8; Calcium 8.6 mg/dL (8.5-10.1); Magnesium 2.2 mg/dL (1.6-2.6); Phosphorus 2.6 mg/dL (2.5-4.90); Potassium 3.9 mmol/L (3.5-5.1)
[2021-08-08 09:00] VITALS: BP 140/83
[2021-08-08] MEDS: PANTOPRAZOLE 40 MG TAB PO SCH (09:22)
[2021-08-08] MEDS: amLODIPine BESYLATE 5 MG TAB PO SCH (09:23)
[2021-08-08] MEDS ORDERED: LORazepam 2MG/ML-1ML VIAL IV PRN ×2 (12:30)
[2021-08-08 13:00] VITALS: BP 149/77
[2021-08-08] MEDS: FOLIC ACID 1 MG TAB PO SCH (13:44)
[2021-08-08] MEDS: MULTIPLE VITAMIN TAB PO SCH (13:44)
[2021-08-08] MEDS: THIAMINE HCL 100 MG TAB PO SCH (13:45)
[2021-08-08] MEDS: NICOTINE 21MG/24 HR TOPICAL PATCH TD SCH (13:45)
[2021-08-08] MEDS ORDERED: HYDROcodone-ACET 10/325MG TAB PO PRN (16:45)
[2021-08-08 22:00] VITALS: BP 130/86
[2021-08-09 05:00] VITALS: BP 115/77
[2021-08-09] MEDS: HYDROmorphone HCL 2 MG/ML VL IV PRN ×2 (05:46→13:13)
[2021-08-09 06:13] LABS: Basophils # (auto) 0 10 ^3/uL (0-0.2); Basophils % (auto) 0.3 % (0.0-2.0); Eosinophils # (auto) 0.3 10 ^3/uL (0-0.8); Hematocrit 41.2 % (41.0-53.0); Hemoglobin 14.1 g/dL (13.5-17.5); Lymphocytes # (auto) 1.6 10 ^3/uL (0.4-5.4); Mean Corpuscular Hemoglobin 29.9 pg (28.0-32.0); Mean Corpuscular Hgb Conc. 34.1 g/dL (32.0-36.0); Mean Corpuscular Volume 87.6 fL (80.0-100.0); Monocytes # (auto) 1.1 10 ^3/uL (0-1.3); Monocytes % (auto) 11.2 % (0.0-12.0); Neutrophils # (auto) 6.8 10 ^3/uL (1.6-8.6); Neutrophils % (auto) 69.5 % (37.0-80.0); Red Blood Cells 4.71 10^6/uL (4.5-5.90); White Blood Cell 9.8 10^3/uL (4.4-10.8)
[2021-08-09 06:44] LABS: Potassium 3.9 mmol/L (3.5-5.1)
[2021-08-09 07:02] LABS: BUN/Creatinine Ratio 12.8; Calcium 8.8 mg/dL (8.5-10.1)
[2021-08-09 09:00] VITALS: BP 135/71
[2021-08-09] MEDS: MULTIPLE VITAMIN TAB PO SCH (09:48)
[2021-08-09] MEDS: FOLIC ACID 1 MG TAB PO SCH (09:51)
[2021-08-09] MEDS: THIAMINE HCL 100 MG TAB PO SCH (09:51)
[2021-08-09] MEDS: amLODIPine BESYLATE 5 MG TAB PO SCH (09:52)
[2021-08-09] MEDS: PANTOPRAZOLE 40 MG TAB PO SCH (09:52)
[2021-08-09] MEDS: NICOTINE 21MG/24 HR TOPICAL PATCH TD SCH (09:53)
[2021-08-09 13:00] VITALS: BP 145/89
[2021-08-09 17:00] VITALS: BP 141/83
[2021-08-09] MEDS ORDERED: NIC21P TD (17:43)
[2021-08-09] MEDS ORDERED: FOLI1TAB6 PO (17:43)
[2021-08-09] MEDS ORDERED: THIA100T10 PO (17:43)
[2021-08-09] MEDS ORDERED: AML5T PO (17:43)
[2021-08-09] MEDS ORDERED: MULTTAB99 PO (17:43)
[2021-08-09 18:14] VITALS: BP 141/83
== END 2021-08-09 19:14 | disposition home or self-care (01) | DRG 228 ==
LOC: ER 14:50 → EDBD 14:50 → OVERFLOW 19:10 → WEST WING 21:58
PROVIDERS: ADMIT Nurse Practitioner; ATTEND Hospitalist
PROC: 0DN80ZZ Release Small Intestine, Open Approach (ICD-10-PCS; 2021-08-06)
PROC: 0YU50JZ Supplement Right Inguinal Region with Synthetic Substitute, Open Approach (ICD-10-PCS; principal; 2021-08-06 12:29)
DX: K40.30 Unilateral inguinal hernia, with obstruction, without gangrene, not specified as recurrent (principal); E83.39 Other disorders of phosphorus metabolism; D72.829 Elevated white blood cell count, unspecified; E66.9 Obesity, unspecified; F10.10 Alcohol abuse, uncomplicated; F41.9 Anxiety disorder, unspecified; I10 Essential (primary) hypertension; Z68.34 Body mass index [BMI] 34.0-34.9, adult; F17.210 Nicotine dependence, cigarettes, uncomplicated; F32.A Depression, unspecified; Z20.822 Contact with and (suspected) exposure to COVID-19; R74.8 Abnormal levels of other serum enzymes; Z91.14 Patient's other noncompliance with medication regimen; Z81.8 Family history of other mental and behavioral disorders; Z83.3 Family history of diabetes mellitus
CPT/HCPCS: 36415; 74177; 80048; 80053; 81001; 82150; 83690; 83735; 84100; 85025; 85610; 85730; 86850; 86900; 86901; 87081; 96374; 96375; 96376; C9113; G0378; J0690; J1100; J2250; J2405; J2704; J7042

== ENCOUNTER 2021-08-19 10:30 | Emergency (ER) | payer OTHER ==
[~2021-08-19] VITALS: Ht 193 cm; Wt 128.4 kg
[~2021-08-19 10:30] MED LIST changes: -DOCU-94 PO; +FOLI1TAB6 PO; +MULTTAB99 PO; +NIC21P TD; -SERT50TA PO; +THIA100T10 PO; -TRAZ50TA2 PO
[2021-08-19] MEDS ORDERED: SODIUM CHLORIDE 0.9% 1,000 ML IV ONE (11:30)
[2021-08-19 12:05] LABS: Basophils # (auto) 0.1 10 ^3/uL (0-0.2); Basophils % (auto) 0.7 % (0.0-2.0); Eosinophils # (auto) 0.2 10 ^3/uL (0-0.8); Eosinophils % (auto) 1.7 % (0.0-7.0); Hematocrit 41.1 % (41.0-53.0); Hemoglobin 13.6 g/dL (13.5-17.5); Lymphocytes # (auto) 1.5 10 ^3/uL (0.4-5.4); Lymphocytes % (auto) 14.7 % (10.0-50.0); Mean Corpuscular Hemoglobin 29.3 pg (28.0-32.0); Mean Corpuscular Hgb Conc. 33.2 g/dL (32.0-36.0); Mean Corpuscular Volume 88.4 fL (80.0-100.0); Monocytes # (auto) 0.5 10 ^3/uL (0-1.3); Monocytes % (auto) 4.7 % (0.0-12.0); Neutrophils # (auto) 7.8 10 ^3/uL (1.6-8.6); Neutrophils % (auto) 78.2 % (37.0-80.0); Nucleated Red Blood Cells % 0.3 %; Red Blood Cells 4.65 10^6/uL (4.5-5.90); White Blood Cell 9.9 10^3/uL (4.4-10.8)
[2021-08-19] MEDS ORDERED: ONDANSETRON HCL 4 MG/2 ML VIAL IV ONE (12:45)
[2021-08-19] MEDS ORDERED: MORPHINE SULFATE INJECTION 2 MG/ML SYRG IV ONE (12:45)
[2021-08-19 12:50] LABS: Albumin 3.3 g/dL (3.4-5.0); BUN/Creatinine Ratio 8.6; Calcium 8.6 mg/dL (8.5-10.1)
[2021-08-19 12:54] LABS: Bilirubin, Total 0.3 mg/dL (0.2-1.0); Total Protein 7.3 g/dL (6.4-8.2)
[2021-08-19 19:00] VITALS: BP 129/81
== END 2021-08-20 03:19 | disposition home or self-care (01) ==
LOC: ER 10:30
DX: R10.30 Lower abdominal pain, unspecified (principal); I10 Essential (primary) hypertension; F17.210 Nicotine dependence, cigarettes, uncomplicated; Z79.899 Other long term (current) drug therapy
CPT/HCPCS: 36415; 74176; 80053; 83690; 85025; 96361; 96374; 96375; 99285; J2270; J2405; J7030

== ENCOUNTER 2022-11-07 12:58 | Emergency (ER) | payer OTHER ==
[~2022-11-07] VITALS: Ht 193 cm; Wt 150.0 kg
[~2022-11-07 12:58] MED LIST changes: +FOLI-119 PO; -FOLI1TAB6 PO; +PERCOT PO
[2022-11-07 15:00] VITALS: BP 148/93
[2022-11-07 15:38] LABS: Urine Bacteria NONE SEEN /hpf (None Seen); Urine Blood Negative /uL (Negative); Urine Specific Gravity 1.007 (1.001-1.035); Urine WBC <1 /hpf (0 - 3)
== END 2022-11-07 16:29 | disposition left against medical advice (07) ==
LOC: ER 12:58
DX: N50.819 Testicular pain, unspecified (principal); Z53.21 Procedure and treatment not carried out due to patient leaving prior to being seen by health care provider
CPT/HCPCS: 81001